=== PATIENT | male | born 1950 | race Caucasian/White ===

== ENCOUNTER → 2022-05-19 | Outpatient (CLI) | payer MEDICARE, BC ==
[2022-05-19 16:03] LABS: HEMATOCRIT 45.8 % (42.0-52.0); HEMOGLOBIN 15.3 g/dL (13.5-18.0); MEAN PLATELET VOLUME 9.9 fl (7.4-10.4); RED BLOOD COUNT 5.07 M/mm3 (4.20-5.60); RED CELL DISTRIBUTION WIDTH 13.5 % (11.5-14.5); WHITE BLOOD COUNT 5.2 K/mm3 (4.8-10.8)
[2022-05-19 16:09] LABS: ALBUMIN 4.3 g/dL (3.4-4.8); POTASSIUM 4.7 mmol/L (3.5-5.1)
[2022-05-19 16:10] LABS: CALCIUM 9.5 mg/dL (8.3-10.5)
[2022-05-19 16:12] LABS: TOTAL PROTEIN 7.7 g/dL (6.2-8.1)
[2022-05-19 16:13] LABS: TOTAL BILIRUBIN 0.6 mg/dL (0.2-1.2)
== END ==
LOC: LAB 15:17
PROVIDERS: Physician Assistant Medical
DX: U07.1 COVID-19 (principal)